=== PATIENT | female | born 1975 | race Caucasian/White ===

== ENCOUNTER 2021-04-25 01:52 | Emergency (ER) | payer MEDICAID ==
[~2021-04-25] VITALS: Ht 167.6 cm; Wt 86.2 kg
[2021-04-25 02:05] VITALS: BP 120/70
--- NOTE | 2021-04-25 02:05 | NUR ---
TO BED AMBULATORY
[2021-04-25] MEDS ORDERED: ONDANSETRON 4 MG/2 ML VIAL IVP ONE (02:35)
[2021-04-25] MEDS ORDERED: NACL 0.9% 1,000 ML IV ONE (02:35)
[2021-04-25] MEDS ORDERED: MORPHINE SULFATE 2 MG/ML SYR IVP ONE (02:35)
--- NOTE | 2021-04-25 02:45 | NUR ---
PATIENT ELOPED FROM FACILITY. DISCHARGE INSTRUCTIONS NOT GIVEN TO PATIENT. DR. Montes NOTIFIED.
== END 2021-04-25 02:45 | disposition left against medical advice (07) ==
LOC: MED 01:52
DX: R10.11 Right upper quadrant pain (principal)
CPT/HCPCS: 99281